=== PATIENT | male | born 1960 | race Caucasian/White ===

== ENCOUNTER 2016-10-29 06:25 | Day surgery (SDC) | payer BC ==
[~2016-10-29 06:25] MED LIST: ANCEF/STERILE WATER 2 GM/20 ML 2 GM/20 ML SYRINGE IV NR; NACL 0.9% 1000 ML 1,000 ML IV SCH; NACL BACTERIOSTATIC INFILTRATI ONE; PEPCID PO NR
--- NOTE | 2016-10-29 07:24 | Anesthesia Day of Surgery ---
Anesthesia Day of Surgery - Day of Surgery Patient Examined: Yes Patient H&P Reviewed: Yes Patient is NPO: Yes
[2016-10-29] MEDS ORDERED: NORCO 5/325 PO PRN (07:26)
--- NOTE | 2016-10-29 07:26 | Anesthesia Consultation ---
Anesthesia Consult and Med Hx Date of service: 10/29/16 - Airway Anesthetic Teeth Evaluation: Poor (multiple missing, loose top right molar) ROM Head & Neck: Adequate Mental/Hyoid Distance: Adequate Mallampati Class: Class II Intubation Access Assessment: Probably Good - Pulmonary Exam CTA: Yes - Cardiac Exam Cardiac Exam: RRR - Pre-Operative Health Status ASA Pre-Surgery Classification: ASA3, ASA4 Proposed Anesthetic Plan: General - Pulmonary Hx Smoking: No Hx Asthma: No Hx Sleep Apnea: No - Cardiovascular System Hx Hypertension: Yes (Tx 10 YRS , 2 MONTHS AGO MED STOPPED PER PCP) Hx Coronary Artery Disease: No - Central Nervous System Hx Seizures: No CVA: No - Endocrine Hx Renal Disease: Yes (right permacath) Hx End Stage Renal Disease: Yes (03/2016) Hx Cirrhosis: No Hx Liver Disease: No Hx Insulin Dependent Diabetes: Yes Hx Thyroid Disease: No - Other Systems Hx Cancer: No
[2016-10-29] MEDS ORDERED: DIPRIVAN 10 MG/ML IV ONE (07:32)
[2016-10-29] MEDS ORDERED: DILAUDID ONE (07:32)
[2016-10-29] MEDS ORDERED: NACL BACTERIOSTATIC INFILTRATI ONE (07:41)
[2016-10-29] MEDS ORDERED: QUELICIN ONE (08:17)
[2016-10-29] MEDS ORDERED: DECADRON ONE (08:17)
[2016-10-29] MEDS ORDERED: XYLOCAINE MPF 2% ONE (08:17)
[2016-10-29] MEDS ORDERED: ePHEDrine SULFATE ONE (08:41)
[2016-10-29] MEDS ORDERED: MARCAINE 0.5% INFILTRATI ONE (08:48)
[2016-10-29] MEDS ORDERED: NACL 0.9% IR ONE (08:48)
[2016-10-29] MEDS ORDERED: HEPARIN 10,000 UNITS/10 ML 1,000 UNIT in NACL 0.9% 250ML 250 ML IR ONE (08:48)
[2016-10-29] MEDS ORDERED: HEPARIN 10,000 UNITS/10 ML ONE (09:18)
[2016-10-29] MEDS ORDERED: ZOFRAN ONE (09:18)
--- NOTE | 2016-10-29 09:24 | Operative Report ---
Operative Report Operative Report: Preoperative diagnosis: End-stage renal disease/dialysis dependent renal failure. Postop diagnosis: The same Procedure: Left brachiocephalic arteriovenous fistula creation. Surgeon: Brad Ulloa MD., RPVI Alcoholism Worker: none Anesthesia: Gen EBL: 10 mL IV fluids: 500 mL Findings: Adequate size left brachial artery, adequate size left cephalic vein, excellent thrill in the vein after the anastomosis. Disposition: To recovery Indications end-stage renal disease. Procedure in details: Patient was brought to the operating room and laid on the operating room table in supine position. After general anesthesia was achieved patient left arm was prepped and draped in the usual sterile fashion. The transverse incision above antecubital fossa was made using #15 blade. Subcutaneous tissue was divided with Bovie electrocautery. The left cephalic and antecubital vein was dissected free. The antecubital vein was disconnected from the distal cephalic vein and controlled was bulldog. It was heparinized with heparinized saline and dilated well. The left brachial artery was then dissected and encircled with Vessel loops proximally and distally. Patient received [3000] units of intravenous heparin. After 3 minutes the artery was occluded with vessel clamps and arteriotomy was made using #11 blade and Escalona scissors. The distal end of the vein was spatulated using Escalona scissors. The anastomosis was created using a running 6-0 Prolene running suture using BV1 needle. Prior to completion the artery was flushed proximally and distally and good forward and back bleeding was seen. Then anastomosis was completed the clamps were removed. The hemostasis was excellent. The strong thrill was appreciated over the cephalic vein. Once it was ascertained that hemostasis was good the skin was closed using 3-0 vicryl and 4-0 monocryl sutures. Patient tolerated procedure well. He was awakened and taken to the recovery room. At the end of the case 1/4 percent Marcaine when infiltrated into the incision for postoperative pain control. All sponge and needle counts were correct.
[2016-10-29] MEDS ORDERED: NACL P/F VIAL (10 ML) 10 ML ONE (09:26)
--- NOTE | 2016-10-29 09:27 | Short Stay Summary ---
Short Stay Documentation - History H&P: obtained from office - Allergies and Medications Current Medications: Allergies No Known Allergies Allergy (Unverified 10/27/16 10:47) Home Medications Medication Instructions Recorded Confirmed Last Taken Type Apixaban [Eliquis] 5 mg PO BID 10/27/16 10/29/16 10/26/16 History Sevelamer Carbonate [Renvela] 1,600 mg PO TID 10/27/16 10/29/16 10/28/16 History Furosemide [Furosemide] 40 mg PO QDAY 10/29/16 10/29/16 10/27/16 History amLODIPine [Norvasc] 10 mg PO DAILY 10/29/16 10/29/16 10/27/16 History Active Medications Acetaminophen/Hydrocodone Bitart (Lantry 5/325) 1 each PO ONCE PRN PRN Reason: Pain, Moderate (4-6) Stop: 10/29/16 16:00 Famotidine (Pepcid) 20 mg PO PREOP NR Stop: 10/29/16 23:59 Last Admin: 10/29/16 07:22 Dose: 20 mg Hydromorphone HCl (Dilaudid) 0.5 mg IV Q10MIN PRN PRN Reason: Pain , Severe (7-10) Stop: 10/29/16 16:00 Cefazolin Sodium (Ancef/Sterile Water 2 Gm/20 Ml) 2 gm in 20 mls @ 80 mls/hr IV PREOP NR PRN Reason: Protocol Stop: 10/29/16 23:59 Sodium Chloride (Nacl 0.9% 1000 Ml) 1,000 mls @ 42 mls/hr IV DIRECT YAMILA Last Admin: 10/29/16 07:10 Dose: 42 mls/hr - Brief post op/procedure progress note Procedure: Preoperative diagnosis: End-stage renal disease/dialysis dependent renal failure. Postop diagnosis: The same Procedure: Left brachiocephalic arteriovenous fistula creation. Surgeon: Brad Ulloa MD., RPVI Veneer Clipper Helper: none Anesthesia: Gen EBL: 10 mL IV fluids: 500 mL Findings: Adequate size left brachial artery, adequate size left cephalic vein, excellent thrill in the vein after the anastomosis. Disposition: To recovery - Disposition Condition at discharge: Good Disposition: DISCHARGED TO HOME OR SELFCARE Short Stay Discharge Plan Activity: advance as tolerated (no heavy lifting with left arm for 4-6 weeks.) Diet: renal Wound: open to air Additional Instructions: Follow-up with Dr. Ulloa in 2 weeks. Follow up with: PRIMARY CARE, [Primary Care Provider] - 7 Days
--- NOTE | 2016-10-29 09:51 | Post Anesthesia Evaluation ---
- Post Anesthesia Evaluation Patient Participated: Yes Airway Patent: Yes Stable Respiratory Function: Yes Nausea/Vomiting: No Temp > 96.8F: Yes Pain Manageable: Yes Adequeate Hydration: Yes Anesthesia Complications: No Block Receding Appropriately: Not Applicable Patient on Ventilator: No
[2016-10-29] MEDS: DILAUDID IV PRN ×2 (09:59→10:10)
[2016-10-29 12:00] VITALS: BP 160/86
== END 2016-10-29 11:25 | disposition home or self-care (01) ==
LOC: OR 06:25
PROVIDERS: ATTEND Surgery Vascular Surgery
DX: E11.22 Type 2 diabetes mellitus with diabetic chronic kidney disease (principal); I12.0 Hypertensive chronic kidney disease with stage 5 chronic kidney disease or end stage renal disease; N18.6 End stage renal disease; Z99.2 Dependence on renal dialysis
CPT/HCPCS: 36415; 36821; 82962; 84132; J0330; J0690; J1100; J1170; J1644; J2405; J2704; J7030; J7050